=== PATIENT | male | born 1950 | race Caucasian/White ===

== ENCOUNTER → 2016-06-04 | Outpatient (CLI) | payer OTHER, BC ==
[~2016-06-04] MED LIST: ACET-1256 PO; ASPEC81 PO; ASPI81TA28 PO; ATOR10TA82 PO; CHOL200010 PO; CLB200 PO; CLOP1TAB15 PO; DOCU-94 PO; FERR1TAB13 PO; FRRS300 PO; MULT-506 PO; ONDA8TAB6 PO; OXYSR10 PO; PLV75 PO; POLY150C PO; RXC5 PO
[2016-06-04 17:52] LABS: BASO % 0.6 %; BASO ABS # 0.04 K/uL (0-0.2); COMPLETE YES; EOS % 1.1 %; HEMATOCRIT 42.3 % (42-52); LYMPH ABS # 1.36 K/uL (1.2-3.4); MEAN CELL VOLUME 91.8 fL (80-100); MEAN CORPUSCULAR HGB CONC 33.8 g/dl (32-36); MEAN PLATELET VOLUME 10.4 fL (7.4-10.4); MONO % 13.4 %; NEUT % 63.9 %; PLATELET COUNT 187 K/uL (130-400); RED BLOOD COUNT 4.61 M/uL (4.7-6.1); WHITE BLOOD COUNT 6.49 K/uL (4.8-10.8)
[2016-06-04 18:08] LABS: BLOOD UREA NITROGEN 20 mg/dl (7-18); BUN/CREATININE RATIO 20.9 (10-20); CALCIUM 8.6 mg/dl (8.5-10.1); CARBON DIOXIDE 28 mmol/L (21-32); CHLORIDE 109 mmol/L (98-107); CREATININE 0.95 mg/dl (0.60-1.40); GLUCOSE 86 mg/dl (70-99); POTASSIUM 3.9 mmol/L (3.5-5.1); SODIUM 141 mmol/L (136-145)
[2016-06-04 18:52] LABS: ALB/GLOB RATIO 1.3 (0.9-2); ALKALINE PHOSPHATASE 89 U/L (45-117); ALT/SGPT 37 U/L (12-78); AST/SGOT 26 U/L (15-37); CHOLESTEROL 140 mg/dl (0-200); CHOLESTEROL/HDL RATIO 2.5; HDL CHOLESTEROL 55 mg/dl; LDL CHOLESTEROL CALCULATED 62 mg/dl; TRIGLYCERIDES 116 mg/dl (0-150); VERY LOW DENSITY LIPOPROT CALC 23 mg/dl
== END | disposition home or self-care (01) ==
LOC: C.LABPVFM 14:39
PROVIDERS: ATTEND Family Medicine
DX: D64.9 Anemia, unspecified (principal); I48.0 Paroxysmal atrial fibrillation; I25.10 Atherosclerotic heart disease of native coronary artery without angina pectoris; M54.5 Low back pain

== ENCOUNTER 2016-06-18 18:48 | Emergency (ER) | payer OTHER, BC ==
[~2016-06-18] VITALS: Ht 167.6 cm; Wt 82.5 kg
[2016-06-18] VITALS (9 sets, daily range): BP systolic 102–139; BP diastolic 52–90; PULSE 74–90; TEMP 37; O2SAT 95–100; Ht 167.6 cm; Wt 82.5 kg
[~2016-06-18 18:48] MED LIST changes: -ACET-1256 PO; -ASPEC81 PO; -CLB200 PO; -FRRS300 PO; -ONDA8TAB6 PO; -OXYSR10 PO; -PLV75 PO; -POLY150C PO; -RXC5 PO
--- NOTE | 2016-06-18 18:54 | EMERGENCY ROOM VISIT NOTE ---
History Report prepared by Jose: Milagro Ferguson Under the Supervision of: Dr. Nash Lomax D.O. First contact with patient: 18:48 Chief Complaint: HIP PAIN Stated Complaint: LEFT HIP DISLOCATION History of Present Illness The patient is a 65 year old male who presents to the Emergency Room with complaints of constant pain to left hip due to dislocation occurring just prior to arrival. The patient states that he was bending down picking up a log when the left hip popped out. He notes that this is the third hip dislocation he had. The patient notes that his last hip surgery was 5 years ago and his last hip dislocation was 1 year ago. The patient denies back pain or lower leg pain. He denies any other symptoms at this time. He is on a blood thinner. 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 Review of Systems See HPI for pertinent positives & negatives. A total of 10 systems reviewed and were otherwise negative. Past Medical & Surgical Medical Problems: (1) Leaky heart valve (2) Right Hip Djd Family History No pertinent family history Social History Smoking Status: Never Smoker Alcohol Use: none Marital Status: single Housing Status: lives alone Occupation Status: employed Current/Historical Medications Scheduled Aspirin (Aspirin Ec), 81 MG PO QPM Atorvastatin (Lipitor), 10 MG PO QPM Cholecalciferol (Vitamin D), 2,000 INTUNIT PO QAM Clopidogrel Bisulfate (Clopidogrel), 75 MG PO DAILY Docusate Sodium (Colace), 100 MG PO BID Multivitamin (Multivitamin), 1 TAB PO QAM Polysaccharide Iron Complex (Nu-Iron 150), 150 MG PO DAILY Scheduled PRN Acetaminophen (Tylenol), 1,000 MG PO UD PRN for Pain Allergies Coded Allergies: No Known Allergies (Verified , 09/26/15) Physical Exam Vital Signs Date Time Temp Pulse Resp B/P Pulse Ox O2 Delivery O2 Flow Rate FiO2 06/18/16 22:01 90 18 102/54 95 Room Air 06/18/16 21:33 88 16 99/52 97 Room Air 06/18/16 21:15 37.0 77 16 102/52 96 Room Air 06/18/16 21:13 78 16 102/52 96 Room Air 06/18/16 20:51 75 18 124/70 95 Room Air 06/18/16 20:41 74 16 127/75 100 Room Air 06/18/16 20:41 74 16 127/75 100 Room Air 06/18/16 20:35 82 16 139/90 100 Non-Rebreather 10.0 06/18/16 20:34 84 16 127/64 100 Non-Rebreather 10.0 06/18/16 20:10 80 18 127/64 96 Room Air 06/18/16 19:36 79 06/18/16 18:56 36.7 77 18 125/67 99 Room Air Physical Exam GENERAL: Patient is awake, alert, very anxious and uncomfortable, laying right lateral Recumbant position. EYES: The conjunctivae are clear. The pupils are round and reactive. EARS, NOSE, MOUTH AND THROAT: The nose is without any evidence of any deformity. Mucous membranes are moist tongue is midline NECK: The neck is nontender and supple. RESPIRATORY: Normal respiratory effort is noted there is no evidence of wheezing rhonchi or rales CARDIOVASCULAR: Regular rate and rhythm noted there no murmurs rubs or gallops normal S1 normal S2 GASTROINTESTINAL: The abdomen is soft. Bowel sounds are present in all quadrants. Abdomen is nontender MUSCULOSKELETAL/EXTREMITIES: Right hip was held in internal rotation and flexed at the knee and hip. Patient resist and moving of left hip. SKIN: There is no obvious evidence of any rash. There are no petechiae, pallor or cyanosis noted. NEUROLOGIC: Patient is awake alert and oriented x3 Medical Decision & Procedures ER Provider Diagnostic Interpretation: X-ray results as stated below per interpretation by me and the radiologist. LEFT HIP SINGLE VIEW CLINICAL HISTORY: Left hip pain status post trauma COMPARISON: None. DISCUSSION: A portable crosstable lateral view of the left hip is provided for interpretation. Bilateral total hip arthroplasties are visualized. There is superior dislocation of the left hip arthroplasty. IMPRESSION: Dislocated total left hip arthroplasty. Electronically signed by: Pato Castle M.D. 06/18/2016 8:12 PM Dictated Date/Time: 06/18/2016 8:10 PM LEFT HIP UNILATERAL 2 VIEWS CLINICAL HISTORY: Dislocation status post reduction COMPARISON: 06/18/2016 DISCUSSION: There has been interval reduction of the dislocated left hip prosthesis. No acute fractures are visualized. IMPRESSION: Interval reduction of the patient's previously dislocated left hip prosthesis. Electronically signed by: Pato Castle M.D. 06/18/2016 9:35 PM Dictated Date/Time: 06/18/2016 9:34 PM Medications Administered Medications (Trade) Dose Ordered Sig/Christian Route Start Time Stop Time Status Last Admin Dose Admin Sodium Chloride (Nss 1000ml) 1,000 ml @ 200 mls/hr Q5H STAT IV 06/18/16 18:56 06/18/16 23:55 06/18/16 19:42 200 MLS/HR Morphine Sulfate (MoRPHine SULFATE INJ) 4 mg Q15M PRN IV 06/18/16 19:00 07/02/16 18:59 06/18/16 19:41 4 MG Ondansetron HCl (Zofran Inj) 4 mg NOW STAT IV 06/18/16 18:56 06/18/16 18:57 DC 06/18/16 19:41 4 MG Oxycodone HCl (Roxicodone Immediate Rel 5MG Home Pack) 1 homepack UD ONCE PO 06/18/16 21:30 06/18/16 21:31 DC 06/18/16 21:55 1 HOMEPACK Procedure Procedural Sedation Indication Left hip dislocation. Total time: 25 minutes. Written consent was obtained after the risks and benefits were explained to the patient, including, but not limited to aspiration, allergic reaction, breathing difficulties, cardiac complications, vomiting, pain, event recall, bleeding, and /or infection. Pre-sedation examination and paperwork completed. The patient was on 100% oxygen via NRB prior to the procedure. Continous end tidal CO2 monitoring, pulse oximetry, and cardiac monitoring were utilized. Suction, airway equipment, medications, respiratory equipment, and appropriate personnel were prepared prior to the initiation of the procedure. A time out was taken. Sedation was achieved utilizing 100 mg of propofol. After I observed the patient had reached the appropriate level of sedation the main procedure was performed without complication. Sedation was discontinued and the monitoring continued. The patient recovered quickly from the effects of the medication without complication or adverse event. ED Course 1848: The patient was evaluated in room C8. A complete history and physical examination were performed. 1855: Zofran Inj 4 mg IV, Sodium Chloride 1,000 ml @ 200 mls/hr IV, Morphine Sulfate Inj 4 mg IV. 1944: I reevaluated the patient. 2000: The patient signed consent form for conscious sedation. 2014: Diprivan Iv Emulsion 100 ml Vial 1 dose IV. 2038: See procedure note for conscious sedation. 2127: I spoke with Dr. Zully BERGMAN. He will help arrange for patient follow up. 2129: Roxicodone Immediate Rel 5 MG Home Pack 1 homepack PO. 2202: Upon reevaluation, the patient is hemodynamically stable. I discussed the results and treatment plan with the patient. He verbalized agreement of the treatment plan. He was discharged home. Medical Decision Differential diagnosis: Etiologies such as fracture, dislocation, neurovascular compromise, compartment syndrome, soft tissue injury, as well as others were entertained. Patient's previous electronic medical records reviewed. Additional history is obtained from the prehospital personnel. Nursing notes reviewed. I reviewed the patient's previous electronic medical records. The patient is a 65-year-old male who presented to the emergency department for an evaluation of left hip pain. The patient has a history of left hip replacement. He has had a hip dislocation in the past. The patient was treated with IV pain medications and IV antiemetics in emergency department. His pain was significantly improved. X-ray did reveal a hip dislocation. The patient was sedated using propofol in the hip was reduced in the usual fashion. The patient tolerated procedure well. Post reduction x-rays revealed good anatomic alignment. The patient was able to ambulate without difficulty. I discussed his case with the covering orthopedic physician. They've agreed to see the patient in follow-up soon as possible. The patient was encouraged to rest and avoid any strenuous activity. He was encouraged to ambulate with walker or crutches. He was also encouraged to return the emergency Department immediately if symptoms change worsen or the need arises. Consults Time Called: 2125 Consulting Physician: Dr. Zully BERGMAN Returned Call: [address] Zully BERGMAN. He will help arrange for patient follow up. Impression Primary Impression: Hip dislocation, left Scribe Attestation The scribe's documentation has been prepared under my direction and personally reviewed by me in its entirety. I confirm that the note above accurately reflects all work, treatment, procedures, and medical decision making performed by me. Departure Information Dispostion Home / Self-Care Forms HOME CARE DOCUMENTATION FORM, IMPORTANT VISIT INFORMATION, WORK / SCHOOL INSTRUCTIONS Patient Instructions ED Consent, Procedural Sedation, ED Hip Replace Dislocation Reduc, My [facility] Additional Instructions Call your orthopedic physician in the morning to schedule a follow-up appointment. Rest and avoid any strenuous activity. Continue to ambulate with a walker or crutches if you can. Continue all medications as prescribed. Continue using Motrin and Tylenol as directed for pain. Problem Qualifiers Primary Impression: Hip dislocation, left Encounter type: initial encounter Qualified Codes: S73.005A - Unspecified dislocation of left hip, initial encounter
[2016-06-18] MEDS ORDERED: ONDANSETRON INJ 2 MG/ML 2 ML VIAL IV STA (18:56)
[2016-06-18] MEDS ORDERED: SODIUM CHLORIDE 0.9% 1000ML 1,000 ML IV STA (18:56)
[2016-06-18] MEDS ORDERED: MoRPHine SULFATE 4 MG/ML 1 ML CARP\\VIAL IV PRN (19:00)
[2016-06-18] MEDS ORDERED: ACET-1256 PO (19:56)
[2016-06-18] MEDS ORDERED: POLY150C PO (19:56)
[2016-06-18] MEDS ORDERED: PLV75 PO (19:56)
--- NOTE | 2016-06-18 20:13 | DIAGNOSTIC IMAGING REPORT ---
LEFT HIP SINGLE VIEW CLINICAL HISTORY: Left hip pain status post trauma COMPARISON: None. DISCUSSION: A portable crosstable lateral view of the left hip is provided for interpretation. Bilateral total hip arthroplasties are visualized. There is superior dislocation of the left hip arthroplasty. IMPRESSION: Dislocated total left hip arthroplasty. Electronically signed by: Pato Castle M.D. 06/18/2016 8:12 PM Dictated Date/Time: 06/18/2016 8:10 PM
[2016-06-18] MEDS ORDERED: PROPOFOL IV EMULSION 10 MG/ML 100 ML VIAL IV PRN (20:15)
--- NOTE | 2016-06-18 21:01 | EMERGENCY ROOM VISIT NOTE ---
ED Visit Note He was seen initially by Dr. Lomax. He requested my assistance in the reduction of his left hip prosthesis. X-rays were reviewed and although only one view it was difficult to determine whether the prosthesis was anterior first posterior. On exam the prosthesis that. To be clearly posterior. Patient was sedated by Dr. Lomax. Left hip was reduced with traction associated with internal/external rotation of the hip without complication. Patient tolerated the procedure well.
[2016-06-18] MEDS ORDERED: OXYCODONE IR HOME PACK PO ONE (21:30)
--- NOTE | 2016-06-18 21:36 | DIAGNOSTIC IMAGING REPORT ---
LEFT HIP UNILATERAL 2 VIEWS CLINICAL HISTORY: Dislocation status post reduction COMPARISON: 06/18/2016 DISCUSSION: There has been interval reduction of the dislocated left hip prosthesis. No acute fractures are visualized. IMPRESSION: Interval reduction of the patient's previously dislocated left hip prosthesis. Electronically signed by: Pato Castle M.D. 06/18/2016 9:35 PM Dictated Date/Time: 06/18/2016 9:34 PM
== END 2016-06-18 22:25 | disposition home or self-care (01) ==
LOC: EDBD 18:48 → C.EDC 18:52
DX: T84.021A Dislocation of internal left hip prosthesis, initial encounter (principal); Y83.1 Surgical operation with implant of artificial internal device as the cause of abnormal reaction of the patient, or of later complication, without mention of misadventure at the time of the procedure; X50.1XXA Overexertion from prolonged static or awkward postures, initial encounter; Y92.89 Other specified places as the place of occurrence of the external cause; Y99.8 Other external cause status; M16.11 Unilateral primary osteoarthritis, right hip; Z87.828 Personal history of other (healed) physical injury and trauma; Z79.82 Long term (current) use of aspirin; Z96.642 Presence of left artificial hip joint

== ENCOUNTER 2016-07-16 09:53 | Inpatient (IN) | payer OTHER, BC ==
[2016-06-23 10:28] VITALS: BMI 26.0
[2016-06-26 12:13] LABS: URINE APPEARANCE CLEAR (CLEAR); URINE BILIRUBIN NEG (NEG); URINE COLOR YELLOW; URINE NITRITE NEG (NEG); URINE SPECIFIC GRAVITY 1.024 (1.000-1.030); UROBILINOGEN NEG (NEG)
[2016-06-26 12:16] LABS: BASO % 0.8 %; BASO ABS # 0.05 K/uL (0-0.2); COMPLETE YES; EOS % 1.8 %; HEMATOCRIT 47.9 % (42-52); LYMPH % 22.5 %; LYMPH ABS # 1.46 K/uL (1.2-3.4); MEAN CELL VOLUME 93.4 fL (80-100); MEAN CORPUSCULAR HEMOGLOBIN 30.2 pg (25-34); MEAN CORPUSCULAR HGB CONC 32.4 g/dl (32-36); MEAN PLATELET VOLUME 10.4 fL (7.4-10.4); MONO % 14.3 %; NEUT % 60.6 %; PLATELET COUNT 214 K/uL (130-400); RED BLOOD COUNT 5.13 M/uL (4.7-6.1); WHITE BLOOD COUNT 6.49 K/uL (4.8-10.8)
[2016-06-26 12:23] LABS: PROTHROMBIN TIME (PATIENT) 10.7 SECONDS (9.0-12.0)
[2016-06-26 12:28] LABS: MANUAL MICROSCOPIC REQUIRED? NO; REVIEW REQ? NO
[2016-06-26 12:31] LABS: BUN/CREATININE RATIO 17.1 (10-20); CALCIUM 9.3 mg/dl (8.5-10.1); CREATININE 0.98 mg/dl (0.60-1.40); POTASSIUM 4.1 mmol/L (3.5-5.1)
[2016-06-26 13:05] LABS: ESTIMATED AVERAGE GLUCOSE 108 mg/dl; HA1C FLAG Normal (Normal)
--- NOTE | 2016-07-15 09:37 | HISTORY & PHYSICAL EXAMINATION ---
DATE OF ADMISSION: 07/16/2016 CHIEF COMPLAINT: Left total hip instability. HISTORY OF PRESENT ILLNESS: The patient is a 65-year-old male, approximately 6 years status post left total hip arthroplasty. Since that time, he has had 3 hip dislocations, the most recent being in the last month or two. He has been seen and evaluated and the decision has been made to proceed with a left hip revision to constrained acetabulum, possible complete hip revision. PAST MEDICAL HISTORY: Coronary artery disease status post [place] and cardiac surgery, and heart valve problem. PAST SURGICAL HISTORY: Bilateral hip replacement, coronary artery bypass surgery, stent placement, and pacemaker placement. MEDICATIONS: Lipitor 10 mg at bedtime, Colace 100 mg twice daily, clopidogrel 75 mg daily, aspirin 81 mg daily, Tylenol p.r.n. pain, iron supplement, multivitamin, and vitamin D daily. ALLERGIES: No known drug allergies. SOCIAL HISTORY AND REVIEW OF SYSTEMS: Noncontributory. PHYSICAL EXAMINATION: GENERAL: Well-nourished and well-developed elderly male who appears his stated age. HEENT: Normocephalic and atraumatic. Extraocular movements intact. Oropharynx is pink and moist. NECK: Supple without adenopathy. LUNGS: Clear to auscultation bilaterally. HEART: Regular rate and rhythm. ABDOMEN: Soft, nontender and nondistended. EXTREMITIES: The upper extremities are within normal limits. The left hip is mobile and pain free with passive range of motion. He has a well-healed lateral scar from his previous arthroplasty. X-RAYS: X-rays were reviewed. He has a Kinectiv type Judy stem in place. The femoral component may be slightly undersized, but the gross appearance of the femoral and acetabular components are within normal limits. ASSESSMENT: Left total hip instability, status post 3 dislocations. PLAN: Risks versus benefits were discussed. Consent was obtained. We will proceed with left total hip acetabular revision to a constrained component versus complete hip revision upon preoperative workup and medical clearance.
[~2016-07-16] VITALS: Ht 167.6 cm; Wt 74.0 kg
[2016-07-16] VITALS (8 sets, daily range): BP systolic 97–124; BP diastolic 62–76; PULSE 61–76; TEMP 36.3–36.5; O2SAT 94–98; Ht 167.6 cm; Wt 74.0 kg
[~2016-07-16 09:53] MED LIST changes: +ACET-1256 PO; +ACETAMINOPHEN 500 MG TAB PO SCH; +ATROPINE SULFATE 0.1 MG/ML 5ML SYR IV PRN; +BUPIVACAINE 0.5 % 5 MG/1 ML PF 10ML VIAL ONE; +CEFAZOLIN 1000MG/55 ML D5W 55 ML IV SCH; -CLOP1TAB15 PO; +CeleBREX 200 MG CAP PO SCH; +DEXAMETHASONE 4 MG TAB PO SCH; +EpHEDrine SULFATE INJ 50 MG/ML AMP IV PRN; +FAMOTIDINE 20 MG TAB PO SCH; +FENTANYL CITRATE INJ 50 MCG/1 ML 2 ML VIAL IV PRN; -FERR1TAB13 PO; +GABAPENTIN 300 MG CAP PO SCH; +LACTATED RINGER'S 1000ML 1,000 ML IV SCH; +LACTATED RINGER'S 1000ML IV SCH; +METOCLOPRAMIDE HCL 10 MG TAB PO SCH; +ONDANSETRON INJ 2 MG/ML 2 ML VIAL IV PRN; +PLV75 PO; +POLY150C PO; +ROPIVACAINE 5MG/ML 30 ML 150 MG, BUPIVACAINE/EPINEPHR 0.5% MPF 30 ML, KETOROLAC TROMETH... INFIL SCH
[2016-07-16] MEDS ORDERED: MIDAZOLAM HCL 1 MG/ML 2ML VIAL ONE (10:31)
--- NOTE | 2016-07-16 11:17 | History & Physical Bridge Note ---
H&P Re-Evaluation Bridge Note: I have examined the patient, reviewed the History & Physical and in the interval since the performance of the History & Physical I have noted the following changes of clinical significance: No changes noted
[2016-07-16] MEDS ORDERED: FENTANYL CITRATE INJ 50 MCG/1 ML 2 ML VIAL ONE ×2 (11:34→12:31)
[2016-07-16] MEDS ORDERED: GLYCOPYRROLATE INJ 0.2 MG/ML VIAL ONE (11:36)
[2016-07-16] MEDS ORDERED: DEXAMETHASONE SOD INJ 4 MG/ML VIAL ONE (11:36)
[2016-07-16] MEDS ORDERED: LIDOCAINE HCL 2% 2 ML VIAL (20MG/ML) ONE (11:36)
[2016-07-16] MEDS ORDERED: ROCURONIUM BROMIDE 10 MG/ML 5 ML VIAL ONE (11:36)
[2016-07-16] MEDS ORDERED: PROPOFOL IV EMULSION 10 MG/ML 20 ML VIAL IV ONE (11:36)
[2016-07-16] MEDS ORDERED: NEOSTIGMINE METHYLSULFATE 5 MG/5 ML SYR ONE (11:36)
[2016-07-16] MEDS ORDERED: ONDANSETRON INJ 2 MG/ML 2 ML VIAL ONE (11:36)
[2016-07-16] MEDS ORDERED: BACITRACIN 50000 UNIT VIAL ONE (12:37)
[2016-07-16] MEDS ORDERED: POVIDONE-IODINE OP SOLN 30 ML BTL ONE (12:37)
[2016-07-16] MEDS ORDERED: ORTHO JOINT ANESTHETIC ONE (12:37)
[2016-07-16] MEDS ORDERED: HYDROmorphone INJ 2 MG/ML SYR/VIAL ONE (12:41)
[2016-07-16] MEDS ORDERED: SODIUM CHLORIDE 0.9% INJ 10 ML VIAL ONE (12:45)
[2016-07-16] MEDS ORDERED: PHENYLEPHRINE 100MCG/ML 5ML SYR ONE (13:09)
--- NOTE | 2016-07-16 13:28 | [facility] Post Operative Brief Note ---
Immediate Operative Summary Operative Date July 16, 2016. Pre-Operative Diagnosis Left total hip instability Post-Operative Diagnosis Left total hip instability Procedure(s) Performed revision left femoral head and neck and acetabular liner to constrained Surgeon Dr. Rand Sleeve Wheel Maker Surgeon(s) Naveed Arriaga PA-C Estimated Blood Loss 200cc Findings Fractured posterior wall elevation Specimens A. Explanted hardware Drains hemovac Anesthesia spinal Complication(s) None Disposition Recovery Room / PACU
[2016-07-16] MEDS ORDERED: EpHEDrine SULFATE 50MG/5ML SYR ONE (13:38)
[2016-07-16] MEDS ORDERED: TAMSULOSIN HCL 0.4 MG CAP PO PRN (14:00)
[2016-07-16] MEDS ORDERED: MAGNESIUM HYDROXIDE SUSP 30 ML UDC PO PRN (14:00)
[2016-07-16] MEDS ORDERED: ALUMINUM/MAGNESIUM/SIMETH (MAALOX MAX) 30 ML UDC PO PRN (14:00)
[2016-07-16] MEDS ORDERED: TRAMADOL HCL 50 MG TAB PO PRN (14:00)
[2016-07-16] MEDS ORDERED: OXYCODONE HCL IR 5 MG TAB (IMMEDIATE RELEASE) PO PRN (14:00)
[2016-07-16] MEDS ORDERED: MoRPHine SULFATE 2 MG/ML CARP IV PRN (14:00)
[2016-07-16] MEDS ORDERED: BISACODYL 10 MG SUPP PR PRN (14:00)
[2016-07-16] MEDS ORDERED: ONDANSETRON INJ 2 MG/ML 2 ML VIAL IV PRN (14:00)
--- NOTE | 2016-07-16 14:32 | DIAGNOSTIC IMAGING REPORT ---
LEFT PELVIS/UNILATERAL HIP 1 VIEW CLINICAL HISTORY: Postoperative evaluation. COMPARISON: Left hip radiograph June 18, 2016. FINDINGS: There is anatomic alignment of the revision left hip arthroplasty. There is an acetabular screw. Skin uriah and drains are present. There are no fractures or unexpected radiopaque foreign bodies. A right hip arthroplasty is intact. IMPRESSION: Expected findings following revision left hip arthroplasty. Electronically signed by: Eric Lopez M.D. 07/16/2016 2:31 PM Dictated Date/Time: 07/16/2016 2:26 PM
--- NOTE | 2016-07-16 14:42 | Anesthesiology Progress Note ---
Anesthesia Post Op Note Date & Time July 16, 2016 at 14:42 Vital Signs Pain Intensity: 0 Vital Signs Past 12 Hours Date Time Temp Pulse Resp B/P Pulse Ox O2 Delivery O2 Flow Rate FiO2 07/16/16 14:30 67 16 118/65 97 Nasal Cannula 2 07/16/16 14:20 72 16 124/70 97 Nasal Cannula 2 07/16/16 14:10 72 16 128/72 98 Mask 10 07/16/16 14:00 83 16 130/69 98 Mask 10 07/16/16 13:50 36.2 77 16 130/75 98 Mask 10 07/16/16 10:00 36.5 64 20 124/76 97 Room Air Notes Mental Status: alert / awake / arousable, participated in evaluation Pt Amnestic to Procedure: Yes Nausea / Vomiting: adequately controlled Pain: adequately controlled Airway Patency, RR, SpO2: stable & adequate BP & HR: stable & adequate Hydration State: stable & adequate Anesthetic Complications: no major complications apparent
[2016-07-16] MEDS ORDERED: MoRPHine SULFATE 4 MG/ML 1 ML CARP\\VIAL IV PRN (15:30)
[2016-07-16] MEDS ORDERED: MoRPHine SULFATE 10 MG/ML CARP/VIAL IV PRN (15:30)
[2016-07-16] MEDS: D5W AND 1/2NSS + 20MEQ KCL 1,000 ML IV SCH (16:37)
--- NOTE | 2016-07-16 17:33 | OPERATIVE REPORT ---
DATE OF OPERATION: 07/16/2016 PREOPERATIVE DIAGNOSIS: Recurrent instability, left hip. POSTOPERATIVE DIAGNOSIS: Recurrent instability, left hip with fractured elevated posterior wall liner. PROCEDURES: 1. Revision acetabular liner and femoral head. 2. Constrained total hip. SURGEON: Dr. Rand. SAFETY SITTER: Naveed Arriaga PA-C ANESTHESIA: Spinal. COMPLICATIONS: None. DESCRIPTION OF PROCEDURE: Following induction of adequate spinal anesthesia, the patient in the right lateral decubitus position and left Evelyn-Langenbeck incision was reopened. Subcutaneous tissue was sharply dissected. Electrocautery was used for hemostasis. The joint capsule was opened and metalosis was identified. The hip was dislocated and the femoral head was disimpacted using a bone tamp and a mallet. The shuttlecock was then utilized to remove the connective femoral neck from the body. The body and the stem was well fixed and well positioned. Attention was turned to the acetabulum where the acetabular liner was found to be fractured. The posterior portion of the liner was gone rendering the hip to be no more stable than a standard flat liner. The size 54 shell was felt to have a fairly thin connection to the posterior wall liner and the decision was made to proceed to a constrained liner as this would drop down to a 28 mm head and much more robust polyethylene. The old acetabular liner was used in the drill screw method as well as additional help with a Estrada and a mallet levering the liner out. The acetabular shell was well fixed. Soft tissue was removed from surrounding the base of the acetabulum using electrocautery and sharp dissection. The 54 constrained liner was placed in position with the tabs at the 8 o'clock and 2 o'clock positions. The decision was made to go with an increased offset. The femoral neck was not anteverted. The Obrien taper in the body of the stem was thoroughly irrigated and dried and the femoral head and neck were impacted into position. A +0 neck length was chosen. Initial reduction was carried out with a RingLoc mechanism that was placed. Soft tissue was still present anteriorly, the hip was dislocated. The soft tissue was dissected free once again. The hip was again relocated and the locking ring was able to be positioned and impacted into position becoming fully seated. This construct was completely stable. The wound was irrigated and joint injection was spread throughout the hip and it was closed over Hemovac drain. A #1 Vicryl was used to close the fascia. Subcutaneous tissues were closed using 0 Dexon, and skin was closed with uriah. Standard dressings applied. The patient tolerated the procedure well. Aboriginal Community Council Member's primary function was as photo studio assistant and assisted in instrument management, patient positioning, and was present for wound closure, including suture management. I attest to the content of the Intraoperative Record and any orders documented therein. Any exceptions are noted below. FALGUNI
[2016-07-16] MEDS: FERROUS GLUCONATE 324 MG TAB PO SCH (19:06)
--- NOTE | 2016-07-16 20:57 | Medical Consult ---
Consultation Date of Consultation: July 16, 2016. Attending Physician: Ean Rand M.D. Reason for Consultation: Medical management History of Present Illness 65 y/o M who is s/p L total hip earlier today with Dr. Rand. Pt states he is hungry. Nursing states he didn't want anything when he came up from the OR. Pt denies fever, SOB, chest pain, abd pain, n/v/c/d, LE pain or swelling. ROS as noted above, otherwise neg. Past Medical/Surgical History CAD s/p [place] and bypass Family History Family history was reviewed; no changes noted. Social History Smoking Status: Never Smoker Drug Use: none Marital Status: single Housing Status: lives alone Occupation Status: employed Allergies Coded Allergies: No Known Allergies (Verified , 06/23/16) Current Inpatient Medications Current Inpatient Medications Medications (Trade) Dose Ordered Sig/Christian Route Start Time Stop Time Status Last Admin Dose Admin Atorvastatin Calcium (Lipitor Tab) 10 mg QPM PO 07/16/16 21:00 08/15/16 20:59 Clopidogrel Bisulfate (plAVix TAB) 75 mg QAM PO 07/19/16 09:00 08/18/16 08:59 Cholecalciferol (Vitamin D Tab) 2,000 inter.unit QAM PO 07/17/16 09:00 08/16/16 08:59 Morphine Sulfate 2 mg 2 mg Q4HWA PRN IV 07/16/16 14:00 07/30/16 13:59 Potassium Chloride/Dextrose/ Sod Cl (D5W And 1/2nss + 20meq KCl) 1,000 ml @ 100 mls/hr Q10H IV 07/16/16 16:00 07/17/16 15:59 07/16/16 16:37 100 MLS/HR Oxycodone HCl (Roxicodone Immediate Rel Tab) 1 TABLET FOR PAIN RATING... Q4H PRN PO 07/16/16 14:00 07/30/16 13:59 Acetaminophen (Tylenol Tab) 1,000 mg Q8 PO 07/16/16 22:00 08/15/16 21:59 Magnesium Hydroxide (Milk Of Magnesia Susp) 30 ml Q6H PRN PO 07/16/16 14:00 08/15/16 13:59 Bisacodyl (Dulcolax Supp) 10 mg DAILY PRN [place] 07/16/16 14:00 08/15/16 13:59 Senna (Senokot Tab) 17.2 mg HS PO 07/16/16 21:00 08/15/16 20:59 Docusate Sodium (coLACE CAP) 100 mg BID PO 07/16/16 21:00 08/15/16 20:59 Al Hydrox/Mg Hydrox/Simethicone (Maalox Max Susp) 15 ml Q4H PRN PO 07/16/16 14:00 08/15/16 13:59 Multivitamins (Multivitamin Tab) 1 tab QAM PO 07/17/16 09:00 08/16/16 08:59 Ondansetron HCl (Zofran Inj) 4 mg Q6H PRN IV 07/16/16 14:00 08/15/16 13:59 07/16/16 19:06 4 MG Ferrous Gluconate (Ferrous Gluconate Tab) 324 mg TIDM PO 07/16/16 17:45 08/15/16 17:59 07/16/16 19:06 324 MG Pantoprazole Sodium (Protonix Tab) 40 mg QAM PO 07/17/16 09:00 08/16/16 08:59 Tramadol HCl (Ultram Tab) 1 TABLET FOR PAIN RATING... Q4H PRN PO 07/16/16 14:00 08/15/16 13:59 Tamsulosin HCl 0.4 mg 0.4 mg QAM PRN PO 07/16/16 14:00 08/15/16 13:59 Cefazolin Sodium/ Dextrose (Ancef Iv/D5 50ml) 55 ml @ 100 mls/hr Q8H IV 07/16/16 20:00 07/17/16 04:32 Aspirin (Ecotrin Tab) 81 mg BID PO 07/16/16 21:00 08/15/16 20:59 Morphine Sulfate (MoRPHine SULFATE INJ) 4 mg Q4HWA PRN IV 07/16/16 15:30 07/30/16 15:29 Morphine Sulfate (MoRPHine SULFATE INJ) 6 mg Q4HWA PRN IV 07/16/16 15:30 07/30/16 15:29 Physical Exam Date Time Temp Pulse Resp B/P Pulse Ox O2 Delivery O2 Flow Rate FiO2 07/16/16 18:27 36.3 72 16 106/67 95 Nasal Cannula 1.0 07/16/16 17:20 36.3 62 18 106/62 98 Nasal Cannula 1.0 07/16/16 16:20 36.3 66 16 112/70 94 Nasal Cannula 1.0 07/16/16 15:50 36.3 63 18 112/68 95 Nasal Cannula 2.0 07/16/16 15:20 95 Nasal Cannula 2.0 07/16/16 15:20 95 Nasal Cannula 2.0 07/16/16 15:20 36.3 61 18 115/69 95 Nasal Cannula 2.0 07/16/16 15:05 36.2 68 16 117/65 99 Nasal Cannula 2 07/16/16 14:50 36.2 68 16 114/65 97 Nasal Cannula 2 07/16/16 14:40 36.2 67 16 114/69 97 Nasal Cannula 2 07/16/16 14:30 67 16 118/65 97 Nasal Cannula 2 07/16/16 14:20 72 16 124/70 97 Nasal Cannula 2 07/16/16 14:10 72 16 128/72 98 Mask 10 07/16/16 14:00 83 16 130/69 98 Mask 10 07/16/16 13:50 36.2 77 16 130/75 98 Mask 10 07/16/16 10:00 36.5 64 20 124/76 97 Room Air General Appearance: WD/WN, no apparent distress Respiratory/Chest: normal breath sounds, no respiratory distress Cardiovascular: regular rate, rhythm, no edema Abdomen/GI: non tender, soft Extremities/Musculoskelatal: no calf tenderness, no pedal edema Neurologic/Psych: alert, oriented x 3 Skin: normal color, warm/dry Assessment & Plan 65 y/o M who was admitted earlier today s/p L total hip L total hip: as per ortho CAD: resume aspirin/plavix as soon as able
[2016-07-16] MEDS: DOCUSATE SODIUM 100 MG CAP PO SCH (21:04)
[2016-07-16] MEDS: ASPIRIN 81 MG ECTAB PO SCH (21:04)
[2016-07-16] MEDS: SENNA 8.6 MG TAB PO SCH (21:04)
[2016-07-16] MEDS: CEFAZOLIN IV 1,000 MG in DEXTROSE 5% 50ML 50 ML IV SCH (21:04)
[2016-07-16] MEDS: ATORVASTATIN 10 MG TAB PO SCH (21:04)
[2016-07-16] MEDS: ACETAMINOPHEN 500 MG TAB PO SCH (21:05)
[2016-07-17] MEDS: D5W AND 1/2NSS + 20MEQ KCL 1,000 ML IV SCH ×2 (02:18→12:24)
[2016-07-17 03:43] VITALS: BP 96/52; PULSE 64; TEMP 36.5; O2SAT 95
[2016-07-17] MEDS: CEFAZOLIN IV 1,000 MG in DEXTROSE 5% 50ML 50 ML IV SCH (04:25)
[2016-07-17] MEDS: ACETAMINOPHEN 500 MG TAB PO SCH ×3 (05:33→21:46)
[2016-07-17 06:52] LABS: COMPLETE YES; HEMATOCRIT 36.1 % (42-52); IG% 0.1 %; LYMPH % 4.5 %; MEAN CELL VOLUME 91.9 fL (80-100); MEAN CORPUSCULAR HGB CONC 32.7 g/dl (32-36); MEAN PLATELET VOLUME 10.1 fL (7.4-10.4); MONO % 10.7 %; NEUT % 84.7 %; PLATELET COUNT 151 K/uL (130-400); RED BLOOD COUNT 3.93 M/uL (4.7-6.1); WHITE BLOOD COUNT 13.41 K/uL (4.8-10.8)
[2016-07-17 07:30] LABS: BUN/CREATININE RATIO 20.1 (10-20); CALCIUM 7.8 mg/dl (8.5-10.1); CREATININE 1.1 mg/dl (0.60-1.40); POTASSIUM 4.4 mmol/L (3.5-5.1)
[2016-07-17 08:12] VITALS: BP 114/58; PULSE 69; TEMP 36.5; O2SAT 95
--- NOTE | 2016-07-17 08:19 | Anesthesiology Progress Note ---
Anesthesia Post Op Note Date & Time July 17, 2016 at 08:19 Vital Signs Pain Intensity: 4.0 Vital Signs Past 12 Hours Date Time Temp Pulse Resp B/P Pulse Ox O2 Delivery O2 Flow Rate FiO2 07/17/16 08:12 36.5 69 16 114/58 95 07/17/16 03:43 36.5 64 18 96/52 95 Room Air 07/16/16 23:30 Room Air 07/16/16 23:00 36.3 76 18 97/62 94 Room Air 07/16/16 21:02 36.3 65 16 112/67 95 Room Air Notes Mental Status: alert / awake / arousable, participated in evaluation Pt Amnestic to Procedure: Yes Nausea / Vomiting: adequately controlled Pain: adequately controlled Airway Patency, RR, SpO2: stable & adequate BP & HR: stable & adequate Hydration State: stable & adequate Anesthetic Complications: no major complications apparent
--- NOTE | 2016-07-17 08:58 | Orthopedic Progress Note ---
Orthopedic Progress Note Date of Service July 17, 2016. Subjective Post OP Day: 1 Reports: feeling well, Denies: SOB, calf pain, chest pain, light headedness, nausea / vomiting Objective calves soft nontender, N/V intact, hip located, dressing C/D/I, A&O x3, toes mobile Date Time Temp Pulse Resp B/P Pulse Ox O2 Delivery O2 Flow Rate FiO2 07/17/16 08:12 36.5 69 16 114/58 95 Room Air 07/17/16 03:43 36.5 64 18 96/52 95 Room Air 07/16/16 23:30 Room Air 07/16/16 23:00 36.3 76 18 97/62 94 Room Air 07/16/16 21:02 36.3 65 16 112/67 95 Room Air 07/16/16 18:27 36.3 72 16 106/67 95 Nasal Cannula 1.0 07/16/16 17:20 36.3 62 18 106/62 98 Nasal Cannula 1.0 07/16/16 16:20 36.3 66 16 112/70 94 Nasal Cannula 1.0 07/16/16 15:50 36.3 63 18 112/68 95 Nasal Cannula 2.0 07/16/16 15:20 95 Nasal Cannula 2.0 07/16/16 15:20 95 Nasal Cannula 2.0 07/16/16 15:20 36.3 61 18 115/69 95 Nasal Cannula 2.0 07/16/16 15:05 36.2 68 16 117/65 99 Nasal Cannula 2 07/16/16 14:50 36.2 68 16 114/65 97 Nasal Cannula 2 07/16/16 14:40 36.2 67 16 114/69 97 Nasal Cannula 2 07/16/16 14:30 67 16 118/65 97 Nasal Cannula 2 07/16/16 14:20 72 16 124/70 97 Nasal Cannula 2 07/16/16 14:10 72 16 128/72 98 Mask 10 07/16/16 14:00 83 16 130/69 98 Mask 10 07/16/16 13:50 36.2 77 16 130/75 98 Mask 10 07/16/16 10:00 36.5 64 20 124/76 97 Room Air Laboratory Results 24 Hours: Test 07/17/16 06:33 White Blood Count 13.41 K/uL Red Blood Count 3.93 M/uL Hemoglobin 11.8 g/dL Hematocrit 36.1 % Mean Corpuscular Volume 91.9 fL Mean Corpuscular Hemoglobin 30.0 pg Mean Corpuscular Hemoglobin Concent 32.7 g/dl Platelet Count 151 K/uL Mean Platelet Volume 10.1 fL Neutrophils (%) (Auto) 84.7 % Lymphocytes (%) (Auto) 4.5 % Monocytes (%) (Auto) 10.7 % Eosinophils (%) (Auto) 0.0 % Basophils (%) (Auto) 0.0 % Neutrophils # (Auto) 11.35 K/uL Lymphocytes # (Auto) 0.60 K/uL Monocytes # (Auto) 1.44 K/uL Eosinophils # (Auto) 0.00 K/uL Basophils # (Auto) 0.00 K/uL Assessment & Plan Assessment: POD 1 s/p Left Revision Acetabular Liner to constrained liner; Revise Femoral head. Coronary artery disease status post MT and cardiac surgery, and heart valve problem. Plan: PT/OT Pt hoping for transfer to [facility] to discuss with pt. Restart Plavix 07/19/16 Inhouse Planning Pain Management: Ultram, Morphine, PO Tylenol, Oxy IR DVT Prophylaxis: TEDs, SCDs, ASA, other (Plavix: starting 07/19/16) Discharge Planning Discharge Planning: uncertain Pain Management: PO Tylenol, Oxy IR DVT Prophylaxis: TEDs, ASA, other (Plavix) Therapy: Physical Therapy
[2016-07-17] MEDS: PANTOprazole SOD 40 MG TAB PO SCH (09:29)
[2016-07-17] MEDS: ASPIRIN 81 MG ECTAB PO SCH ×2 (09:30→21:28)
[2016-07-17] MEDS: DOCUSATE SODIUM 100 MG CAP PO SCH ×2 (09:30→21:28)
[2016-07-17] MEDS: FERROUS GLUCONATE 324 MG TAB PO SCH ×3 (09:31→18:31)
[2016-07-17] MEDS: CHOLECALCIFEROL 1000 INTER.UNIT TAB PO SCH (09:31)
[2016-07-17] MEDS: MULTIVITAMIN TAB PO SCH (09:31)
[2016-07-17] MEDS ORDERED: COUGH DROP (SUGAR FREE) LOZ 24 LOZ/1 BOX ONE (10:56)
[2016-07-17 11:17] VITALS: BP 107/64; PULSE 71; TEMP 36.8; O2SAT 96
[2016-07-17 15:15] VITALS: BP 92/54; PULSE 74; TEMP 36.6; O2SAT 97
[2016-07-17] MEDS: ATORVASTATIN 10 MG TAB PO SCH (21:45)
[2016-07-17] MEDS: SENNA 8.6 MG TAB PO SCH (21:46)
--- NOTE | 2016-07-17 21:52 | Progress Note ---
Subjective Date of Service: July 17, 2016. Subjective Pt evaluation today including: conversation w/ patient, physical exam, chart review, lab review Pain: left hip pnly PO Intake: normal Voiding: no voiding problems pt w/o complaints of chest pain, dyspnea, orthopnea, pnd, abd pain +flatus BPs noted to be low or low-normal since the OR yesterday but making adequate urine Review of Systems Constitutional: No fever Respiratory: No dyspnea on exertion, No shortness of breath Cardiac: No chest pain Objective Vital Signs Date Time Temp Pulse Resp B/P Pulse Ox O2 Delivery O2 Flow Rate FiO2 07/17/16 19:45 Room Air 07/17/16 15:15 36.6 74 18 92/54 97 Room Air 07/17/16 11:17 36.8 71 18 107/64 96 07/17/16 08:12 36.5 69 16 114/58 95 Room Air 07/17/16 07:20 Room Air 07/17/16 03:43 36.5 64 18 96/52 95 Room Air 07/16/16 23:30 Room Air 07/16/16 23:00 36.3 76 18 97/62 94 Room Air Physical Exam General Appearance: no apparent distress ENT: pharynx normal Neck: no JVD Respiratory/Chest: lungs clear, no respiratory distress, no accessory muscle use Cardiovascular: regular rate, rhythm, no gallop, no murmur Abdomen: normal bowel sounds, non tender, soft, no organomegaly Extremities: + pedal edema (left foot; none on right) Neurologic/Psychiatric: alert, oriented x 3 Laboratory Results Last 24 Hours Test 07/17/16 06:33 White Blood Count 13.41 K/uL Red Blood Count 3.93 M/uL Hemoglobin 11.8 g/dL Hematocrit 36.1 % Mean Corpuscular Volume 91.9 fL Mean Corpuscular Hemoglobin 30.0 pg Mean Corpuscular Hemoglobin Concent 32.7 g/dl Platelet Count 151 K/uL Mean Platelet Volume 10.1 fL Neutrophils (%) (Auto) 84.7 % Lymphocytes (%) (Auto) 4.5 % Monocytes (%) (Auto) 10.7 % Eosinophils (%) (Auto) 0.0 % Basophils (%) (Auto) 0.0 % Neutrophils # (Auto) 11.35 K/uL Lymphocytes # (Auto) 0.60 K/uL Monocytes # (Auto) 1.44 K/uL Eosinophils # (Auto) 0.00 K/uL Basophils # (Auto) 0.00 K/uL RDW Standard Deviation 45.0 fL RDW Coefficient of Variation 13.3 % Immature Granulocyte % (Auto) 0.1 % Immature Granulocyte # (Auto) 0.02 K/uL Sodium Level 141 mmol/L Potassium Level 4.4 mmol/L Chloride Level 109 mmol/L Carbon Dioxide Level 25 mmol/L Anion Gap 7.0 mmol/L Blood Urea Nitrogen 22 mg/dl Creatinine 1.10 mg/dl Est Creatinine Clear Calc Drug Dose 58.8 ml/min Estimated GFR () 80.1 Estimated GFR (Non- 69.1 BUN/Creatinine Ratio 20.1 Random Glucose 179 mg/dl Calcium Level 7.8 mg/dl Assessment and Plan 65yo male - 1. low or low-normal BP - likely due to acute blood loss anemia. BP during my visit was 110's/60s. UOP noted to be sufficient since 0700 this am. Repeat his CBC / BMP in am to ensure stability. 2. acute blood loss anemia - repeat CBC am; Fe supplement at d/c. 3. h/o CAD - asa/plavix resumed. 4. h/o aortic valve repair (or replacement) - I don't have specific records re : this but based on my exam he has no evidence of CHF, etc. 5. h/o PAF - noted. NSR based on exam today. will cont to follow
[2016-07-18 00:02] VITALS: BP 93/52; PULSE 70; TEMP 36.4; O2SAT 90
[2016-07-18 00:27] VITALS: O2SAT 93
[2016-07-18] MEDS: ACETAMINOPHEN 500 MG TAB PO SCH (05:34)
[2016-07-18 06:29] LABS: HEMATOCRIT 35.2 % (42-52); MEAN CELL VOLUME 93.1 fL (80-100); MEAN CORPUSCULAR HEMOGLOBIN 30.7 pg (25-34); MEAN PLATELET VOLUME 10.1 fL (7.4-10.4); PLATELET COUNT 132 K/uL (130-400); RED BLOOD COUNT 3.78 M/uL (4.7-6.1); WHITE BLOOD COUNT 10.98 K/uL (4.8-10.8)
[2016-07-18 06:40] VITALS: BP 116/67; PULSE 67; TEMP 36.4; O2SAT 95
[2016-07-18 07:13] LABS: BUN/CREATININE RATIO 20.5 (10-20); CALCIUM 7.9 mg/dl (8.5-10.1); POTASSIUM 4.1 mmol/L (3.5-5.1)
[2016-07-18] MEDS: FERROUS GLUCONATE 324 MG TAB PO SCH (07:42)
[2016-07-18] MEDS: MULTIVITAMIN TAB PO SCH (07:43)
[2016-07-18] MEDS: PANTOprazole SOD 40 MG TAB PO SCH (07:43)
[2016-07-18] MEDS: CHOLECALCIFEROL 1000 INTER.UNIT TAB PO SCH (07:44)
--- NOTE | 2016-07-18 08:08 | Orthopedic Progress Note ---
Orthopedic Progress Note Date of Service July 18, 2016. Subjective Post OP Day: 2 Reports: feeling well, pain controlled w PO medications, Denies: SOB, calf pain , chest pain, complaints, light headedness, nausea / vomiting Objective calves soft nontender, N/V intact, hip located, capillary refill less than 2 sec., dressing C/D/I, A&O x3, toes mobile Date Time Temp Pulse Resp B/P Pulse Ox O2 Delivery O2 Flow Rate FiO2 07/18/16 06:40 36.4 67 16 116/67 95 Room Air 07/18/16 00:27 93 Room Air 07/18/16 00:02 36.4 70 16 93/52 90 Room Air 07/17/16 19:45 Room Air 07/17/16 15:15 36.6 74 18 92/54 97 Room Air 07/17/16 11:17 36.8 71 18 107/64 96 07/17/16 08:12 36.5 69 16 114/58 95 Room Air Laboratory Results 24 Hours: Test 07/18/16 06:22 Hematocrit 35.2 % Hemoglobin 11.6 g/dL Assessment & Plan Assessment: POD 2 s/p Left Revision Acetabular Liner to constrained liner; Revise Femoral head. Coronary artery disease status post AL and cardiac surgery, and heart valve problem. Plan: PT/OT Plan for d/c to [facility] today if bed available. Restart Plavix 07/19/16 Inhouse Planning Pain Management: Ultram, Morphine, PO Tylenol, Oxy IR DVT Prophylaxis: TEDs, SCDs, ASA, other (Plavix: starting 07/19/16) Discharge Planning Discharge Planning: uncertain (Waiting for acceptance to [facility]) Pain Management: PO Tylenol, Oxy IR DVT Prophylaxis: TEDs, ASA, other (Plavix) Therapy: Physical Therapy
[2016-07-18] MEDS ORDERED: ASPEC81 PO (08:13)
[2016-07-18] MEDS ORDERED: CLB200 PO (08:13)
[2016-07-18] MEDS ORDERED: RXC5 PO (08:13)
[2016-07-18] MEDS ORDERED: ONDA8TAB6 PO (08:13)
[2016-07-18] MEDS ORDERED: OXYSR10 PO (08:13)
--- NOTE | 2016-07-18 08:20 | Discharge Instructions ---
Discharge Instructions Date of Service July 18, 2016. Admission Reason for Admission: Unspecified Dislocation Of Left Hip, Z01.810 Discharge Discharge Diagnosis / Problem: dislocation left total hip arthroplasty Discharge Goals Goal(s): Decrease discomfort, Improve function, Increase independence Activity Recommendations Activity Level: Up Ad Merlene Therapies: Physical Therapy, Weight Bearing Status (left weightbear as tolerated) Weightbearing Status: Left weightbearing (as tolerated) Lifting Limitations: none . Additional Information Patient informed of condition: Yes Advance Directives: Yes DNR: No Level of Care: Acute Rehab Communicable Disease: No Prognosis: Stable Instructions / Follow-Up Instructions / Follow-Up ACTIVITY RECOMMENDATIONS: SELF CARE INSTRUCTIONS AFTER TOTAL HIP REPLACEMENT Until the incision and soft tissues around your hip have healed, there is a possibility that the hip prosthesis could dislocate. A. Observe the following precautions to prevent dislocation: 1. Don't bend your hip greater than 90 degrees. 2. Avoid crossing your legs or ankles while standing or lying. 3. Sit with your feet placed 6 inches apart. 4. When sitting, keep your knees below your hips. Sit on a firm surface, avoid deep, soft chairs and couches. Use an elevated toilet seat in the bathroom. 5. Don't bend over at the waist. Use a long handled shoehorn and a sock aid to help you put on your shoes and socks. A economic forecaster can help you machine operator hop picker objects that are too high or too low to reach. 6. Keep car riding to a minimum for at least one month after surgery. B. Your balance may be shaky for a while. Use crutches or a walker until directed by your doctor. C. Use hand rails when walking on stairs. D. Wear low heeled shoes with non-slip soles. E. Be sure that your floors are free of things that could trip you - throw rugs , electrical cords, small objects. Avoid wet and waxed floors, especially with crutches and canes. F. Try to walk several times a day with rest periods between. G. Continue with all the exercises taught to you in the hospital. Again, make walking a part of your daily routine. H. It is okay to shower if minimal to no drainage from incision. No baths. Do not soak wound. I. Physical Therapy as instructed by your Physician. SPECIAL CARE INSTRUCTIONS: VERY IMPORTANT TO READ AND REVIEW A. You may still be at risk for phlebitis and blood clots. 1. Wear surgical stockings (DAVE hose) for one month, 20 hours daily, after surgery to improve circulation and reduce swelling. 2. Take Aspirin (blood thinning medications) as directed by your doctor. 3. START PLAVIX ON 07.19.16. B. We encourage and will assist you in choosing a home-health agency of your choice. Home health nurses and therapists will monitor your temperature, wound healing and progress in exercise and walking. Home health nurses may also draw the blood for the pro-time test. They may instruct you in decreasing or increasing the amount of Coumadin you take. C. You must take antibiotics before having dental work, bladder, bowel and other surgery. Your doctor will provide you with a permanent card to carry describing precautions. D. Call [facility] if you have a temperature of 101 or greater, redness or swelling around the incision, cloudy drainage from incision, or sudden increase in pain in your hip, not relieved by your regular pain medication. E. Please call the office at if you have any concerns or questions about your operation or recovery. FOLLOW UP VISIT: If appointment is not already scheduled: Please call [facility] to make a follow-up appointment for one month after your surgery at . Current Hospital Diet Patient's current hospital diet: AHA Diet (Heart Healthy) Discharge Diet Recommended Diet: Regular Diet Procedures Procedures Performed: revision left femoral head and neck and acetabular liner to constrained Pending Studies Studies pending at discharge: no Laboratory Results Hemoglobin A1c Test 06/26/16 10:07 Range/Units Estimated Average Glucose 108 mg/dl Hemoglobin A1c 5.4 4.5-5.6 % Lipid Panel Test 06/04/16 14:50 Range/Units Triglycerides Level 116 0-150 mg/dl Cholesterol Level 140 0-200 mg/dl HDL Cholesterol 55 mg/dl Cholesterol/HDL Ratio 2.5 LDL Cholesterol, Calculated 62 mg/dl Medical Emergencies . Who to Call and When: Medical Emergencies: If at any time you feel your situation is an emergency, please call 911 immediately. . Non-Emergent Contact Non-Emergency issues call your: Surgeon Call Non-Emergent contact if: temperature is above 101, your pain is not controlled, your pain is worsening, wound has increased drainage, wound has increased redness . . "Provider Documentation" section prepared by Ger Miranda. . Core Measure Problem Core Measures: None
[2016-07-18] MEDS: ASPIRIN 81 MG ECTAB PO SCH (08:56)
[2016-07-18] MEDS: DOCUSATE SODIUM 100 MG CAP PO SCH (08:56)
--- NOTE | 2016-07-18 09:40 | Hospitalist Progress Note ---
Hospitalist Progress Note Date of Service July 18, 2016. (Melisa Freeman PA-C) Subjective Pt evaluation today including: conversation w/ patient, physical exam, chart review, lab review, review of studies, review of inpatient medication list Patient seen and evaluated. No acute events overnight. Reporting good pain control with at its worse he rates in a 3/10. He is tolerating a diet without abdominal pain, nausea, or vomiting. Plan for D/C to [facility] today Constitutional: No chills, No fever Eyes: No worsening of vision ENT: No sore throat, No trouble swallowing Respiratory: No cough, No shortness of breath Cardiovascular: No chest pain, No palpitations Abdomen: No GI bleeding, No constipation, No diarrhea, No nausea, No pain, No vomiting Musculoskeletal: + joint pain (L Hip rated 3/10 at worse), No calf pain, No swelling Male : No dysuria Neurologic: No vertigo Heme: No abnormal bleeding/bruising Skin: No rash (Melisa Freeman, SHARIFC) Medications Current Inpatient Medications Medications (Trade) Dose Ordered Sig/Christian Route Start Time Stop Time Status Last Admin Dose Admin Atorvastatin Calcium (Lipitor Tab) 10 mg QPM PO 07/16/16 21:00 08/15/16 20:59 07/17/16 21:45 10 MG Clopidogrel Bisulfate (plAVix TAB) 75 mg QAM PO 07/19/16 09:00 08/18/16 08:59 Cholecalciferol (Vitamin D Tab) 2,000 inter.unit QAM PO 07/17/16 09:00 08/16/16 08:59 07/18/16 07:44 2,000 INTER.UNIT Morphine Sulfate (MoRPHine SULFATE INJ) 2 mg Q4HWA PRN IV 07/16/16 14:00 07/30/16 13:59 Oxycodone HCl (Roxicodone Immediate Rel Tab) 1 TABLET FOR PAIN RATING... Q4H PRN PO 07/16/16 14:00 07/30/16 13:59 Acetaminophen (Tylenol Tab) 1,000 mg Q8 PO 07/16/16 22:00 08/15/16 21:59 07/18/16 05:34 1,000 MG Magnesium Hydroxide (Milk Of Magnesia Susp) 30 ml Q6H PRN PO 07/16/16 14:00 6/24/17 13:59 Bisacodyl (Dulcolax Supp) 10 mg DAILY PRN NE 07/16/16 14:00 08/15/16 13:59 Senna (Senokot Tab) 17.2 mg HS PO 07/16/16 21:00 08/15/16 20:59 07/17/16 21:46 17.2 MG Docusate Sodium (coLACE CAP) 100 mg BID PO 07/16/16 21:00 08/15/16 20:59 07/18/16 08:56 100 MG Al Hydrox/Mg Hydrox/Simethicone (Maalox Max Susp) 15 ml Q4H PRN PO 07/16/16 14:00 08/15/16 13:59 Multivitamins (Multivitamin Tab) 1 tab QAM PO 07/17/16 09:00 08/16/16 08:59 07/18/16 07:43 1 TAB Ondansetron HCl (Zofran Inj) 4 mg Q6H PRN IV 07/16/16 14:00 08/15/16 13:59 07/16/16 19:06 4 MG Ferrous Gluconate (Ferrous Gluconate Tab) 324 mg TIDM PO 07/16/16 17:45 08/15/16 17:59 07/18/16 07:42 324 MG Pantoprazole Sodium (Protonix Tab) 40 mg QAM PO 07/17/16 09:00 08/16/16 08:59 07/18/16 07:43 40 MG Tramadol HCl (Ultram Tab) 1 TABLET FOR PAIN RATING... Q4H PRN PO 07/16/16 14:00 08/15/16 13:59 Tamsulosin HCl (Flomax Cap) 0.4 mg QAM PRN PO 07/16/16 14:00 08/15/16 13:59 Aspirin (Ecotrin Tab) 81 mg BID PO 07/16/16 21:00 08/15/16 20:59 07/18/16 08:56 81 MG Morphine Sulfate (MoRPHine SULFATE INJ) 4 mg Q4HWA PRN IV 07/16/16 15:30 07/30/16 15:29 Morphine Sulfate (MoRPHine SULFATE INJ) 6 mg Q4HWA PRN IV 07/16/16 15:30 07/30/16 15:29 (Melisa Freeman PA-C) Objective Vital Signs Date Time Temp Pulse Resp B/P Pulse Ox O2 Delivery O2 Flow Rate FiO2 07/18/16 06:40 36.4 67 16 116/67 95 Room Air 07/18/16 00:27 93 Room Air 07/18/16 00:02 36.4 70 16 93/52 90 Room Air 07/17/16 19:45 Room Air 07/17/16 15:15 36.6 74 18 92/54 97 Room Air 07/17/16 11:17 36.8 71 18 107/64 96 (Melisa Freeman PA-C) Physical Exam General Appearance: WD/WN, no apparent distress Eyes: sclerae normal ENT: hearing grossly normal Neck: supple, no JVD, trachea midline Respiratory/Chest: lungs clear, normal breath sounds, no respiratory distress, no accessory muscle use Cardiovascular: regular rate, rhythm, no gallop, no murmur Abdomen: normal bowel sounds, non tender, soft Extremities: no calf tenderness Neurologic/Psychiatric: alert, oriented x 3 Skin: normal color, warm/dry, + pertinent finding (dressing applied to L hip that is clean/dry/intact; surround skin without erythema or ecchymosis) (Melisa Freeman PA-C) Laboratory Results Last 24 Hours Test 07/18/16 06:22 White Blood Count 10.98 K/uL Red Blood Count 3.78 M/uL Hemoglobin 11.6 g/dL Hematocrit 35.2 % Mean Corpuscular Volume 93.1 fL Mean Corpuscular Hemoglobin 30.7 pg Mean Corpuscular Hemoglobin Concent 33.0 g/dl RDW Standard Deviation 47.2 fL RDW Coefficient of Variation 13.8 % Platelet Count 132 K/uL Mean Platelet Volume 10.1 fL Sodium Level 145 mmol/L Potassium Level 4.1 mmol/L Chloride Level 110 mmol/L Carbon Dioxide Level 27 mmol/L Anion Gap 8.0 mmol/L Blood Urea Nitrogen 20 mg/dl Creatinine 1.00 mg/dl Est Creatinine Clear Calc Drug Dose 64.6 ml/min Estimated GFR () 89.9 Estimated GFR (Non- 77.5 BUN/Creatinine Ratio 20.5 Random Glucose 85 mg/dl Calcium Level 7.9 mg/dl (Pete, Melisa M., PA-C) Assessment and Plan 65yo male - Low or Low-Normal BP - likely due to acute blood loss anemia. - BP continues to be low-normal but improving with adequate urine output and patient asymptomatic Acute Blood Loss Anemia - STABLE - No signs of active bleeding - gave Rx for ferrous sulfate 325 mg BID H/O CAD and S/P Aortic Valve Repair/Replacement: STABLE - No records for confirmation of repair vs replacement - Asa/Plavix resumed - utilizing ASA 81 mg BID as DVT prophylaxis H/O Paroxysmal Atrial Fibrillation: NSR Currently - Reports having a fast heart rate during his admission for his heart surgery - no beta blockage or anticoagulant Disposition: Per primary - plan for [facility] today (Melisa Freeman, PA-C) Attending Attestation: Pt seen/examined, chart reviewed, care plan d/w TASIA Freeman. I agree w/ the [place] components of her documentation. No issues overnight Denies cp, sob, abd pain +stool, +flatus VSS BPs low-normal at times but UOP nl gen - nad heart - RRR, s1, s2 lungs - CTA b/l abd - soft, NT A/P: s/p left THR acute blood loss anemia - ferrous sulfate BID at discharge x 1-2 months bowel regimen valvular heart disease - stable, no signs/symptoms of CHF ok from medical standpoint to d/c to rehab Lisa TRIPP MD (Dipesh Tripp MD)
[2016-07-18] MEDS ORDERED: FRRS300 PO (09:45)
[2016-07-18 11:13] VITALS: BP 116/67; PULSE 67; TEMP 36.4; O2SAT 95
[2016-07-19] MEDS ORDERED: CLOPIDOGREL BISULFATE 75 MG TAB PO SCH (09:00)
--- NOTE | 2016-07-23 16:19 | DISCHARGE SUMMARY ---
DISCHARGE DIAGNOSIS: Left total hip arthroplasty instability. SECONDARY DIAGNOSES: Coronary artery disease, status post CT and heart valve disease. CONSULTS: Chetna Hardy DO COMPLICATIONS: None. PROCEDURES: Revision left femoral head and neck and conversion to acetabular constrained liner by Dr. Rand on 07/16/2016. BRIEF HISTORY: As dictated in history and physical. HOSPITAL SUMMARY: The patient was admitted on the above-noted date and had the above-noted surgery performed which he tolerated well. On the first postoperative day, the patient was feeling well and had no complaints. Calves were soft and nontender, neurovascularly intact. Hip was located. Dressings were clean, dry and intact. Toes were mobile. Vital signs were stable and he was afebrile. Hemoglobin was 10.8 and he was started on physical therapy protocol and continued on DVT prophylaxis and pain management and medical management per [facility]. By his second postoperative day, he was feeling well and his pain was controlled. Calves were soft and nontender, neurovascularly intact. Dressings were clean, dry and intact. Toes were mobile. Vital signs were stable. He was afebrile. Hemoglobin was 11.6. He was progressing with his physical therapy and remaining medically stable. Plans were for him to go to [facility] which he was accepted to and by 07/18/2016, he was remaining stable and it was felt he could be discharged to [facility] for further physical therapy and care. For further review, please see chart. LAB AND X-RAY DATA: As per chart. DISCHARGE INSTRUCTIONS: The patient was discharged to [facility] on 07/18/2016. DIET: Heart healthy. ACTIVITY: Weightbearing as tolerated, left lower extremity. Follow [facility] instruction sheets and special care instructions as noted and follow up with Dr. Rand in 2 weeks. The patient to call for appointment if one has not been made for you. DISCHARGE MEDICATIONS: Aspirin 81 mg p.o. b.i.d., Celebrex 200 mg p.o. q. 12 hours, ferrous sulfate 325 mg p.o. b.i.d., Zofran 8 mg p.o. q. 6 hours p.r.n., oxycodone 5-10 mg p.o. q. 4 hours p.r.n., OxyContin 10 mg p.o. q. 12 hours, Resume Tylenol 1000 mg p.o. as directed, atorvastatin 10 mg p.o. q.p.m., vitamin D 2000 international units p.o. q.a.m., Plavix 75 mg p.o. q.a.m., Colace 100 mg p.o. q.a.m., multivitamin 1 tab p.o. q.a.m. and Nu-Iron 150 mg p.o. q.a.m. Take your aspirin twice daily for 30 days and after 30 days, resume your once daily dosing. MTDD
== END 2016-07-18 11:28 | DRG 467 ==
LOC: ENRESERVTM → ENRESERVDT → C.ACU 09:53 → C.3E 11:14
PROC: 0SPB09Z Removal of Liner from Left Hip Joint, Open Approach (ICD-10-PCS; principal; 2016-07-16 12:30)
PROC: 0SUB09Z Supplement Left Hip Joint with Liner, Open Approach (ICD-10-PCS; principal; 2016-07-16 12:30)
PROC: 0SU Lower Joints, Supplement (ICD-10-PCS; principal; 2016-07-16 12:30)
PROC: 0SP Lower Joints, Removal (ICD-10-PCS; principal; 2016-07-16 12:30)
DX: T84.021A Dislocation of internal left hip prosthesis, initial encounter (principal); D62 Acute posthemorrhagic anemia; T84.011A Broken internal left hip prosthesis, initial encounter; Z96.643 Presence of artificial hip joint, bilateral; I25.10 Atherosclerotic heart disease of native coronary artery without angina pectoris; I25.2 Old myocardial infarction; Z79.899 Other long term (current) drug therapy; Z79.82 Long term (current) use of aspirin; Z95.1 Presence of aortocoronary bypass graft; Z95.0 Presence of cardiac pacemaker; Y83.1 Surgical operation with implant of artificial internal device as the cause of abnormal reaction of the patient, or of later complication, without mention of misadventure at the time of the procedure

== ENCOUNTER → 2016-11-26 | Outpatient (CLI) | payer OTHER, BC ==
[~2016-11-26] MED LIST changes: -ACETAMINOPHEN 500 MG TAB PO SCH; +ASPEC81 PO; -ASPI81TA28 PO; -ATOR10TA82 PO; +ATOR10TA88 PO; -ATROPINE SULFATE 0.1 MG/ML 5ML SYR IV PRN; -BUPIVACAINE 0.5 % 5 MG/1 ML PF 10ML VIAL ONE; -CEFAZOLIN 1000MG/55 ML D5W 55 ML IV SCH; +CLB200 PO; -CeleBREX 200 MG CAP PO SCH; -DEXAMETHASONE 4 MG TAB PO SCH; -EpHEDrine SULFATE INJ 50 MG/ML AMP IV PRN; -FAMOTIDINE 20 MG TAB PO SCH; -FENTANYL CITRATE INJ 50 MCG/1 ML 2 ML VIAL IV PRN; +FRRS300 PO; -GABAPENTIN 300 MG CAP PO SCH; -LACTATED RINGER'S 1000ML 1,000 ML IV SCH; -LACTATED RINGER'S 1000ML IV SCH; -METOCLOPRAMIDE HCL 10 MG TAB PO SCH; +ONDA8TAB6 PO; -ONDANSETRON INJ 2 MG/ML 2 ML VIAL IV PRN; +OXYSR10 PO; -ROPIVACAINE 5MG/ML 30 ML 150 MG, BUPIVACAINE/EPINEPHR 0.5% MPF 30 ML, KETOROLAC TROMETH... INFIL SCH; +RXC5 PO
[2016-11-26 12:41] LABS: BASO % 0.5 %; BASO ABS # 0.03 K/uL (0-0.2); COMPLETE YES; EOS % 1.8 %; HEMATOCRIT 45.6 % (42-52); LYMPH % 32.1 %; LYMPH ABS # 1.79 K/uL (1.2-3.4); MEAN CELL VOLUME 89.8 fL (80-100); MEAN CORPUSCULAR HEMOGLOBIN 29.5 pg (25-34); MEAN CORPUSCULAR HGB CONC 32.9 g/dl (32-36); MEAN PLATELET VOLUME 10.7 fL (7.4-10.4); MONO % 16.7 %; NEUT % 48.9 %; PLATELET COUNT 185 K/uL (130-400); RED BLOOD COUNT 5.08 M/uL (4.7-6.1); WHITE BLOOD COUNT 5.58 K/uL (4.8-10.8)
[2016-11-26 13:56] LABS: ALT/SGPT 33 U/L (12-78); BLOOD UREA NITROGEN 16 mg/dl (7-18); BUN/CREATININE RATIO 18.1 (10-20); CALCIUM 9.1 mg/dl (8.5-10.1); CARBON DIOXIDE 27 mmol/L (21-32); CHLORIDE 107 mmol/L (98-107); CHOLESTEROL 165 mg/dl (0-200); GLUCOSE 84 mg/dl (70-99); POTASSIUM 3.7 mmol/L (3.5-5.1); SODIUM 141 mmol/L (136-145)
[2016-11-26 13:59] LABS: ALB/GLOB RATIO 1.2 (0.9-2); ALKALINE PHOSPHATASE 76 U/L (45-117); AST/SGOT 28 U/L (15-37); CHOLESTEROL/HDL RATIO 3.5; HDL CHOLESTEROL 47 mg/dl; LDL CHOLESTEROL CALCULATED 76 mg/dl; TRIGLYCERIDES 209 mg/dl (0-150); VERY LOW DENSITY LIPOPROT CALC 42 mg/dl
== END | disposition home or self-care (01) ==
LOC: C.LABPVFM 08:05
PROVIDERS: ATTEND Family Medicine
DX: Q23.1 Congenital insufficiency of aortic valve (principal); I48.0 Paroxysmal atrial fibrillation; I25.10 Atherosclerotic heart disease of native coronary artery without angina pectoris; E55.9 Vitamin D deficiency, unspecified; E78.5 Hyperlipidemia, unspecified

== ENCOUNTER → 2016-12-03 | Outpatient (CLI) | payer OTHER, BC ==
--- NOTE | 2016-12-03 09:30 | DIAGNOSTIC IMAGING REPORT ---
ABDOMINAL AORTIC ULTRASOUND CLINICAL HISTORY: Z13.6 Screening for AAA (abdominal aortic aneurysm)[id number] COMPARISON STUDY: No previous studies for comparison. FINDINGS: There is no evidence of abdominal aortic aneurysm. The maximal aortic diameter is 2 cm. There is mild scattered plaque present. Each common iliac artery measures 1 cm. IMPRESSION: No evidence of abdominal aortic aneurysm. Electronically signed by: Pato Castle M.D. 12/03/2016 9:29 AM Dictated Date/Time: 12/03/2016 9:28 AM
== END | disposition home or self-care (01) ==
LOC: C.ULTR 09:08
PROVIDERS: ATTEND Family Medicine
DX: Z13.6 Encounter for screening for cardiovascular disorders (principal)

== ENCOUNTER → 2017-03-10 | Day surgery (SDC) | payer OTHER, BC ==
[2017-02-04 07:53] VITALS: Ht 167.6 cm; Wt 73.2 kg
[~2017-03-10] VITALS: Ht 167.6 cm; Wt 73.2 kg
[~2017-03-10] MED LIST changes: +500ML BSS 0.3ML EPI 1:1000PF IRRIG ONE; +ACETAMINOPHEN 325 MG TAB PO PRN; +AMVISC PLUS 0.8ML SYRINGE INT OCU ONE; -ASPEC81 PO; +ASPI81TA28 PO; +ATOR10TA82 PO; -ATOR10TA88 PO; +ATROPINE SULFATE 0.1 MG/ML 5ML SYR IV PRN; +BSS FLUSH ONE; -CLB200 PO; -DOCU-94 PO; +ENDOCOAT 0.85ML SYRINGE INT OCU ONE; +EpHEDrine SULFATE INJ 50 MG/ML AMP IV PRN; +EpINEphrine INJ 1MG/ML AMP 1 MG/ML AMP ONE; -FRRS300 PO; +LACTATED RINGER'S 1000ML 500 ML IV SCH; +LIDOCAINE 4% OP SOLN DROP CHARGE ONE; +LIDOCAINE 4% OP SOLN DROP CHARGE OPR SCH; +LIDOCAINE HCL 1% MPF 2 ML VIAL ONE; +MIDAZOLAM HCL 1 MG/ML 2ML VIAL ONE; +MIX: 4ML BSS 1ML EPI 1:1000 PF TOP ONE; +MOXIFLOXACIN OPH SOLN PER DROP CHARGE ONE; -ONDA8TAB6 PO; -OXYSR10 PO; +POVIDONE-IODINE OP SOLN 30 ML BTL ONE; +PROPARACAINE 0.5% OP SOLN PER DROP CHARGE OPR SCH; -RXC5 PO; +TOBRAMYCIN/DEXAMETHASONE OPH OINT PER APPLN CHARGE ONE
[2017-03-10] MEDS: PHENYLEPHRINE HCL 2.5% OP SOLN PER DROP CHARGE OPR SCH ×3 (09:58→10:08)
[2017-03-10] MEDS: TROPICAMIDE 1% OP SOLN PER DROP CHARGE OPR SCH ×3 (09:59→10:09)
[2017-03-10] MEDS: CYCLOPENTOLATE HCL 1% OP SOLN PER DROP CHARGE OPR SCH ×3 (10:00→10:10)
[2017-03-10] MEDS: MOXIFLOXACIN OPH SOLN PER DROP CHARGE OPR SCH ×3 (10:01→10:11)
--- NOTE | 2017-03-10 11:25 | [facility] Post Operative Brief Note ---
Immediate Operative Summary Operative Date Mar 10, 2017. Pre-Operative Diagnosis Right eye cataract Post-Operative Diagnosis Same as preop Procedure(s) Performed Right Cataract Phacoemulsification With Intraocular Lens Implant; Toric Lens Surgeon Dr. Bryson Care Management Assistant Surgeon(s) None Estimated Blood Loss 0 mL Findings right cataract Specimens None Complication(s) None Disposition
--- NOTE | 2017-03-10 11:27 | [facility] Operative Report ---
Operative Report Date of Service Mar 10, 2017. Operative Report DATE OF OPERATION: 03/10/17 PREOPERATIVE DIAGNOSIS: Senile nuclear cataract and astigmatism, right eye POSTOPERATIVE DIAGNOSIS: Senile nuclear cataract and astigmatism, right eye PROCEDURE PERFORMED: Phacoemulsification with toric intraocular lens implantation, right eye SURGEON: Dr. Sher Bryson ANESTHESIA: Topical with 1% intracameral lidocaine and monitored anesthesia care COMPLICATIONS: None DESCRIPTION OF PROCEDURE: After positively identifying the patient both verbally and by wristband in the preoperative area, the right eye was marked as the operative eye. Using a Robomarker, the 165 degree axis was marked after placing a drop of proparacaine. The patient was then brought back to the operating room by the anesthesia and nursing staff where they were given a drop of tetracaine and betadine into the operative eye. They were then sterilely prepped and draped in the standard fashion typical for ophthalmic surgery. Steri-strips were placed along the upper eyelids to keep the lashes back, and a lid speculum was placed into the operative eye. At this point, a documented time out was performed with members of the ophthalmology, nursing, and anesthesia staffs all agreeing upon the correct patient, correct location for surgery, correct procedure, and correct type and power of intraocular lens to be implanted. The microscope was then swung into position. Then, a paracentesis wound was made using a sideport blade. Then, in sequence, 1% preservative-free lidocaine followed by Endocoat viscoelastic was injected into the anterior chamber. Next , the main incision was made with a keratome blade in triplanar fashion. A sharp cystotome was introduced into the eye and used to create a tear in the anterior capsule, which was directed into a continuous curvilinear capsulorrhexis using Utrata forceps. Hydrodissection was then performed with BSS on a flat-tip cannula. Next, the phacoemulsification handpiece was introduced into the eye and used to remove the nucleus in a zhbwvw-sea-wncwavx fashion. This was done without complication and then the irrigation-aspiration handpiece was introduced into the eye and used to remove all remaining cortical and epinuclear material. Amvisc was then injected into the anterior chamber as well as into the capsular bag and using the lens injector system, a [id number] 25.5 D lens, serial number [id number], and expiration date 12/2016 was injected into the capsular bag and rotated into the correct position to correctly line up with the toric marking. Next, the irrigation-aspiration handpiece was used to remove all remaining Amvisc. BSS was used to hydrate the main wound, and then BSS was injected into the paracentesis site to reach physiologic pressure and then the main wound was checked and found to be watertight. The patient was given drops of Vigamox and tobradex ointment into the operative eye, and then the surrounding area was cleaned and dried. A clear plastic shield was placed over the eye and the patient was then sat up and taken from the operating room by the anesthesia staff having tolerated the procedure well and suffering no complications. DISPOSITION: The patient was returned to the recovery room in stable condition. I attest to the content of the Intraoperative Record and any orders documented therein. Any exceptions are noted below.
--- NOTE | 2017-03-10 11:28 | Discharge Instructions-SurgCtr ---
Discharge Instructions Date of Service Mar 10, 2017. Visit Reason for Visit: Cataract Right Eye Discharge Discharge Diagnosis / Problem: right cataract Discharge Goals Goal(s): Decrease discomfort, Improve function Activity Recommendations Activity Limitations: as noted below Anesthesia . Post Anesthesia Instructions: If you have had General Anesthesia or IV Sedation: * Do not drive today. * Resume driving when surgeon permits. * Do not make important decisions or sign legal documents today. * Call surgeon for: 1. Temperature elevations greater than 101 degrees F. 2. Uncontrollable pain. 3. Excessive bleeding. 4. Persistent nausea and vomiting. 5. Medication intolerance (nausea, vomiting or rash). * For nausea and vomiting use only clear liquids such as: tea, soda, bouillon until nausea subsides, then gradually increase diet as tolerated. * If you have any concerns or questions, call your surgeon's office. If physician is unavailable and it is an emergency, call 911 or go to the nearest emergency room. . Instructions / Follow-Up Instructions / Follow-Up ACTIVITY RECOMMENDATIONS: * Light activities. * You may walk outside, read, watch television. * You may notice redness on the white part of the eye and some blurry vision - this is normal. MEDICATIONS: Resume previous medications unless instructed otherwise by your surgeon. Start all eye drops at 1:30 pm today: * Eye drops (today): Prednisone - one drop in operative eye every 2 hours while awake Ofloxacin - one drop in operative eye every 2 hours while awake Ketorolac - one drop in operative eye 4 times daily SPECIAL CARE INSTRUCTIONS: * Tape plastic shield over eye to sleep at night. Call your doctor at with any concerns or problems. FOLLOW UP VISIT: Follow-up with Dr Bryson at [facility] as scheduled. Diet Recommendations Home Diet: no limitations Procedures Procedures Performed: Right Cataract Phacoemulsification With Intraocular Lens Implant; Toric Lens Pending Studies Studies pending at discharge: no Medical Emergencies . Who to Call and When: Medical Emergencies: If at any time you feel your situation is an emergency, please call 911 immediately. . Non-Emergent Contact Non-Emergency issues call your: Surgeon . . "Provider Documentation" section prepared by Sher Bryson. .
--- NOTE | 2017-03-10 11:37 | Anesthesia Progress Nt - [facility] ---
Anesthesia Post Op Note Date & Time Mar 10, 2017 at 11:37 Vital Signs Pain Intensity: 0 Vital Signs Past 12 Hours Date Time Temp Pulse Resp B/P (MAP) Pulse Ox O2 Delivery O2 Flow Rate FiO2 03/10/17 11:28 37.0 64 16 118/73 (88) 94 Room Air 03/10/17 09:45 36.3 85 20 136/89 (105) 95 Room Air Notes Mental Status: alert / awake / arousable, participated in evaluation Pt Amnestic to Procedure: Yes Nausea / Vomiting: adequately controlled Pain: adequately controlled Airway Patency, RR, SpO2: stable & adequate BP & HR: stable & adequate Hydration State: stable & adequate Anesthetic Complications: no major complications apparent
[2017-03-10 11:48] VITALS: BP 121/74; PULSE 67; O2SAT 95
== END | disposition home or self-care (01) ==
LOC: X.SURG 09:09
PROVIDERS: ATTEND Ophthalmology
DX: H25.11 Age-related nuclear cataract, right eye (principal); H52.201 Unspecified astigmatism, right eye; I25.10 Atherosclerotic heart disease of native coronary artery without angina pectoris; I11.9 Hypertensive heart disease without heart failure; Z79.82 Long term (current) use of aspirin; Z79.02 Long term (current) use of antithrombotics/antiplatelets; Z95.2 Presence of prosthetic heart valve; Z96.649 Presence of unspecified artificial hip joint

== ENCOUNTER → 2017-03-24 | Day surgery (SDC) | payer OTHER, BC ==
[2017-03-22 12:35] VITALS: Ht 167.6 cm; Wt 73.2 kg
[~2017-03-24] VITALS: Ht 167.6 cm; Wt 73.2 kg
[~2017-03-24] MED LIST changes: +LIDOCAINE 4% OP SOLN DROP CHARGE OPL SCH; -LIDOCAINE 4% OP SOLN DROP CHARGE OPR SCH; +PROPARACAINE 0.5% OP SOLN PER DROP CHARGE OPL SCH; -PROPARACAINE 0.5% OP SOLN PER DROP CHARGE OPR SCH
[2017-03-24] MEDS: TROPICAMIDE 1% OP SOLN PER DROP CHARGE OPL SCH ×3 (09:45→09:55)
[2017-03-24] MEDS: PHENYLEPHRINE HCL 2.5% OP SOLN PER DROP CHARGE OPL SCH ×3 (09:45→09:54)
[2017-03-24] MEDS: CYCLOPENTOLATE HCL 1% OP SOLN PER DROP CHARGE OPL SCH ×3 (09:46→09:56)
[2017-03-24] MEDS: MOXIFLOXACIN OPH SOLN PER DROP CHARGE OPL SCH ×3 (09:47→09:57)
--- NOTE | 2017-03-24 11:29 | [facility] Post Operative Brief Note ---
Immediate Operative Summary Operative Date Mar 24, 2017. Pre-Operative Diagnosis Cataract left eye Post-Operative Diagnosis same Procedure(s) Performed Left Cataract Phacoemulsification With Intraocular Lens Implant; Toric Lens Surgeon Dr. Bryson [employer] Member Surgeon(s) none Estimated Blood Loss 0 Findings Consistent with Post-Op Diagnosis Specimens none Anesthesia Type MAC Complication(s) none Disposition Accompanied Pt To Recovery: no Disposition:
--- NOTE | 2017-03-24 11:30 | [facility] Operative Report ---
Operative Report Date of Service Mar 24, 2017. Operative Report DATE OF OPERATION: 03/24/17 PREOPERATIVE DIAGNOSIS: Senile nuclear cataract and astigmatism, left eye POSTOPERATIVE DIAGNOSIS: Senile nuclear cataract and astigmatism, left eye PROCEDURE PERFORMED: Phacoemulsification with toric intraocular lens implantation, left eye SURGEON: Dr. Sher Bryson ANESTHESIA: Topical with 1% intracameral lidocaine and monitored anesthesia care COMPLICATIONS: None DESCRIPTION OF PROCEDURE: After positively identifying the patient both verbally and by wristband in the preoperative area, the left eye was marked as the operative eye. Using a Robomarker, the 178 degree axis was marked after placing a drop of proparacaine. The patient was then brought back to the operating room by the anesthesia and nursing staff where they were given a drop of tetracaine and betadine into the operative eye. They were then sterilely prepped and draped in the standard fashion typical for ophthalmic surgery. Steri-strips were placed along the upper eyelids to keep the lashes back, and a lid speculum was placed into the operative eye. At this point, a documented time out was performed with members of the ophthalmology, nursing, and anesthesia staffs all agreeing upon the correct patient, correct location for surgery, correct procedure, and correct type and power of intraocular lens to be implanted. The microscope was then swung into position. Then, a paracentesis wound was made using a sideport blade. Then, in sequence, 1% preservative-free lidocaine followed by Endocoat viscoelastic was injected into the anterior chamber. Next , the main incision was made with a keratome blade in triplanar fashion. A sharp cystotome was introduced into the eye and used to create a tear in the anterior capsule, which was directed into a continuous curvilinear capsulorrhexis using Utrata forceps. Hydrodissection was then performed with BSS on a flat-tip cannula. Next, the phacoemulsification handpiece was introduced into the eye and used to remove the nucleus in a [id number] fashion. This was done without complication and then the irrigation-aspiration handpiece was introduced into the eye and used to remove all remaining cortical and epinuclear material. Amvisc was then injected into the anterior chamber as well as into the capsular bag and using the lens injector system, a [id number] 25.0 D lens, serial number [id number], and expiration date01/2019 was injected into the capsular bag and rotated into the correct position to correctly line up with the toric marking. Next, the irrigation-aspiration handpiece was used to remove all remaining Amvisc. BSS was used to hydrate the main wound, and then BSS was injected into the paracentesis site to reach physiologic pressure and then the main wound was checked and found to be watertight. The patient was given drops of Vigamox and tobradex ointment into the operative eye, and then the surrounding area was cleaned and dried. A clear plastic shield was placed over the eye and the patient was then sat up and taken from the operating room by the anesthesia staff having tolerated the procedure well and suffering no complications. DISPOSITION: The patient was returned to the recovery room in stable condition. I attest to the content of the Intraoperative Record and any orders documented therein. Any exceptions are noted below.
--- NOTE | 2017-03-24 11:31 | Discharge Instructions-SurgCtr ---
Discharge Instructions Date of Service Mar 24, 2017. Visit Reason for Visit: Cataract Left Eye Discharge Discharge Diagnosis / Problem: left cataract Discharge Goals Goal(s): Decrease discomfort, Improve function Activity Recommendations Activity Limitations: as noted below Anesthesia . Post Anesthesia Instructions: If you have had General Anesthesia or IV Sedation: * Do not drive today. * Resume driving when surgeon permits. * Do not make important decisions or sign legal documents today. * Call surgeon for: 1. Temperature elevations greater than 101 degrees F. 2. Uncontrollable pain. 3. Excessive bleeding. 4. Persistent nausea and vomiting. 5. Medication intolerance (nausea, vomiting or rash). * For nausea and vomiting use only clear liquids such as: tea, soda, bouillon until nausea subsides, then gradually increase diet as tolerated. * If you have any concerns or questions, call your surgeon's office. If physician is unavailable and it is an emergency, call 911 or go to the nearest emergency room. . Instructions / Follow-Up Instructions / Follow-Up ACTIVITY RECOMMENDATIONS: * Light activities. * You may walk outside, read, watch television. * You may notice redness on the white part of the eye and some blurry vision - this is normal. MEDICATIONS: Resume previous medications unless instructed otherwise by your surgeon. Start all eye drops at 1:30 pm today: * Eye drops (today): Prednisone - one drop in operative eye every 2 hours while awake Ofloxacin - one drop in operative eye every 2 hours while awake Ketorolac - one drop in operative eye 4 times daily SPECIAL CARE INSTRUCTIONS: * Tape plastic shield over eye to sleep at night. Call your doctor at with any concerns or problems. FOLLOW UP VISIT: Follow-up with Dr Bryson at [facility] as scheduled. Diet Recommendations Home Diet: no limitations Procedures Procedures Performed: Left Cataract Phacoemulsification With Intraocular Lens Implant; Toric Lens Pending Studies Studies pending at discharge: no Medical Emergencies . Who to Call and When: Medical Emergencies: If at any time you feel your situation is an emergency, please call 911 immediately. . Non-Emergent Contact Non-Emergency issues call your: Surgeon . . "Provider Documentation" section prepared by Sher Bryson. .
--- NOTE | 2017-03-24 11:49 | Anesthesia Progress Nt - [facility] ---
Anesthesia Post Op Note Date & Time Mar 24, 2017 at 11:49 Vital Signs Pain Intensity: 0 Vital Signs Past 12 Hours Date Time Temp Pulse Resp B/P (MAP) Pulse Ox O2 Delivery O2 Flow Rate FiO2 03/24/17 11:29 36.5 65 16 120/77 (91) 97 Room Air 03/24/17 09:38 36.6 87 22 137/89 (105) 98 Room Air Notes Mental Status: alert / awake / arousable, participated in evaluation Pt Amnestic to Procedure: Yes Nausea / Vomiting: adequately controlled Pain: adequately controlled Airway Patency, RR, SpO2: stable & adequate BP & HR: stable & adequate Hydration State: stable & adequate Anesthetic Complications: no major complications apparent
[2017-03-24 11:57] VITALS: BP 114/67; PULSE 59; O2SAT 96
== END | disposition home or self-care (01) ==
LOC: X.SURG 09:21
PROVIDERS: ATTEND Ophthalmology
DX: H25.12 Age-related nuclear cataract, left eye (principal); H52.202 Unspecified astigmatism, left eye; I51.9 Heart disease, unspecified; I10 Essential (primary) hypertension; Z95.0 Presence of cardiac pacemaker; Z95.4 Presence of other heart-valve replacement; Z79.899 Other long term (current) drug therapy; Z79.82 Long term (current) use of aspirin

== ENCOUNTER → 2017-05-07 | Outpatient (CLI) | payer OTHER, BC ==
[~2017-05-07] MED LIST changes: -500ML BSS 0.3ML EPI 1:1000PF IRRIG ONE; -ACETAMINOPHEN 325 MG TAB PO PRN; -AMVISC PLUS 0.8ML SYRINGE INT OCU ONE; -ATROPINE SULFATE 0.1 MG/ML 5ML SYR IV PRN; -BSS FLUSH ONE; -ENDOCOAT 0.85ML SYRINGE INT OCU ONE; -EpHEDrine SULFATE INJ 50 MG/ML AMP IV PRN; -EpINEphrine INJ 1MG/ML AMP 1 MG/ML AMP ONE; -LACTATED RINGER'S 1000ML 500 ML IV SCH; -LIDOCAINE 4% OP SOLN DROP CHARGE ONE; -LIDOCAINE 4% OP SOLN DROP CHARGE OPL SCH; -LIDOCAINE HCL 1% MPF 2 ML VIAL ONE; -MIDAZOLAM HCL 1 MG/ML 2ML VIAL ONE; -MIX: 4ML BSS 1ML EPI 1:1000 PF TOP ONE; -MOXIFLOXACIN OPH SOLN PER DROP CHARGE ONE; -POVIDONE-IODINE OP SOLN 30 ML BTL ONE; -PROPARACAINE 0.5% OP SOLN PER DROP CHARGE OPL SCH; -TOBRAMYCIN/DEXAMETHASONE OPH OINT PER APPLN CHARGE ONE
[2017-05-07 13:03] LABS: ALBUMIN 3.9 gm/dl (3.4-5.0); ALT/SGPT 49 U/L (12-78); AST/SGOT 28 U/L (15-37); BLOOD UREA NITROGEN 24 mg/dl (7-18); CALCIUM 8.7 mg/dl (8.5-10.1); CARBON DIOXIDE 24 mmol/L (21-32); CREATININE 1.14 mg/dl (0.60-1.40); GLUCOSE 89 mg/dl (70-99); POTASSIUM 3.7 mmol/L (3.5-5.1); SODIUM 139 mmol/L (136-145)
[2017-05-07 13:05] LABS: ALKALINE PHOSPHATASE 79 U/L (45-117); CHOLESTEROL 143 mg/dl (0-200); LDL CHOLESTEROL CALCULATED 54 mg/dl; TOTAL PROTEIN 7.6 gm/dl (6.4-8.2)
== END | disposition home or self-care (01) ==
LOC: C.LABPVFM 09:01
PROVIDERS: ATTEND Family Medicine
DX: Q23.1 Congenital insufficiency of aortic valve (principal); I48.0 Paroxysmal atrial fibrillation; I25.10 Atherosclerotic heart disease of native coronary artery without angina pectoris; K59.00 Constipation, unspecified; Z13.6 Encounter for screening for cardiovascular disorders